=== PATIENT | female | born 1980 | race American Indian/Alaskan Native ===

== ENCOUNTER 2017-11-20 06:09 | Emergency (ER) | payer OTHER ==
[2017-11-20] MEDS ORDERED: ATIVAN IV ONE ×2 (06:50→07:14)
[2017-11-20] MEDS ORDERED: NACL 0.9% 1000 ML 1,000 ML IV ONE (06:54)
[2017-11-20 07:28] LABS: Basophils % (Auto) 0.2 % (0.0-1.8); Eosinophils % (Auto) 0.1 % (0.0-4.3); Hematocrit 31.5 % (30.3-42.9); Hemoglobin 10.2 gm/dl (10.1-14.3); Lymphocytes # (Auto) 0.9 K/mm3 (1.2-5.4); Mean Corpuscular HGB Conc 33 % (30-34); Mean Corpuscular Hemoglobin 28 pg (28-32); Mean Corpuscular Volume 85 fl (79-97); Monocytes # (Auto) 0.3 K/mm3 (0.0-0.8); Monocytes % (Auto) 2.7 % (0.0-7.3); Platelet Count 347 K/mm3 (140-440); Red Cell Distribution Width 16.4 % (13.2-15.2)
--- NOTE | 2017-11-20 09:53 | Ultrasound Report ---
ULTRASOUND OB LESS THAN 14 WEEKS FETUS ULTRASOUND OB TRANSVAGINAL HISTORY: Vaginal bleeding, positive urine test. COMPARISON: None. TECHNIQUE: Transabdominal and transvaginal ultrasound with color doppler interrogation. FINDINGS: Many of the images are limited secondary to poor patient cooperation. Uterus: The uterus is anteverted. The uterus measures 15 x 5 x 6 cm. No intrauterine gestational sac is identified. No heart tones are detected. The endometrial stripe measures 8 mm. A few of the transabdominal images suggest soft tissue within the cervical canal. This is not clearly demonstrated on the limited transvaginal images. Incomplete could be considered. Please correlate with the patient's clinical presentation. Right ovary: Not visualized. Left ovary: Not visualized. No pelvic fluid or mass is identified. Normal color doppler interrogation. IMPRESSION: Limited exam. No viable intrauterine is identified.
[2017-11-20 10:08] LABS: INR 1.06 (0.87-1.13)
[2017-11-20 10:11] LABS: Alanine Aminotransferase 8 units/L (7-56); Albumin 3.5 g/dL (3.9-5); BUN/Creatinine Ratio 7; Blood Urea Nitrogen 4 mg/dL (7-17); Calcium 8.6 mg/dL (8.4-10.2); Hemolysis Index 5
[2017-11-20 10:18] LABS: Bilirubin,Direct < 0.2 mg/dL (0-0.2)
[2017-11-20 11:37] VITALS: BP 121/53
[2017-11-20 12:10] LABS: Bilirubin,Urine NEG (Negative); Blood,Urine LG (Negative); Color,Urine Red (Yellow); Nitrite,Urine NEG (Negative); Protein,Urine <15 mg/dL mg/dL (Negative); Urobilinogen,Urine < 2.0 mg/dL (<2.0)
[2017-11-20 12:11] LABS: RBC,Urine > 182.0 /HPF (0.0-6.0)
--- NOTE | 2017-11-20 12:19 | Emergency Department Report ---
ED General Adult HPI - General Chief complaint: Vaginal Bleeding Stated complaint: POSS MISCARRIAGE Time Seen by Provider: 11/20/17 06:52 Source: EMS Mode of arrival: Stretcher Limitations: No Limitations - History of Present Illness Initial comments: Patient is a very poor historian. Apparently she's had multiple prior abortions. She is poorly cooperative with nursing and this examiner. Apparently she experienced vaginal bleeding prior to arrival. She is not complaining of abdominal pain at the time of my encounter. -: unknown Consistency: intermittent Improves with: none Worsens with: none Associated Symptoms: denies other symptoms Treatments Prior to Arrival: none - Related Data Previous Rx's Medication Instructions Recorded Last Taken Type Sulfamethoxazole/Trimethoprim 1 each PO BID #20 tablet 10/15/13 Unknown Rx [Bactrim DS] traMADol [Ultram] 50 mg PO Q4HR PRN #14 tablet 10/15/13 Unknown Rx Nitrofurantoin Monohyd/M-Cryst 100 mg PO BID #10 capsule 11/20/17 Unknown Rx [Macrobid 100 mg Capsule] traMADol [Ultram] 50 mg PO Q6HR PRN #10 tablet 11/20/17 Unknown Rx Allergies Allergy/AdvReac Type Severity Reaction Status Date / Time No Known Allergies Allergy Unverified 10/15/13 14:29 ED Review of Systems ROS: Stated complaint: POSS MISCARRIAGE Other details as noted in HPI Comment: Unobtainable due to pts medical conditions ED Past Medical Hx - Past Medical History Previous Medical History?: Yes Hx GERD: Yes - Surgical History Hx Breast Surgery: Yes (breast reduction) Additional Surgical History: six miscarriages - Social History Smoking Status: Unknown if ever smoked Substance Use Type: None - Medications Home Medications: Home Medications Medication Instructions Recorded Confirmed Last Taken Type Sulfamethoxazole/Trimethoprim 1 each PO BID #20 tablet 10/15/13 Unknown Rx [Bactrim DS] traMADol [Ultram] 50 mg PO Q4HR PRN #14 tablet 10/15/13 Unknown Rx Nitrofurantoin Monohyd/M-Cryst 100 mg PO BID #10 capsule 11/20/17 Unknown Rx [Macrobid 100 mg Capsule] traMADol [Ultram] 50 mg PO Q6HR PRN #10 tablet 11/20/17 Unknown Rx ED Physical Exam - General Limitations: Other (anxiety, poorly cooperative) General appearance: alert, in no apparent distress - Head Head exam: Present: atraumatic, normocephalic - Eye Eye exam: Present: normal appearance. Absent: scleral icterus - ENT ENT exam: Present: mucous membranes moist - Neck Neck exam: Present: normal inspection - Respiratory Respiratory exam: Present: normal lung sounds bilaterally. Absent: respiratory distress - Cardiovascular Cardiovascular Exam: Present: regular rate, normal rhythm. Absent: systolic murmur, diastolic murmur, rubs, gallop - GI/Abdominal GI/Abdominal exam: Present: soft, normal bowel sounds. Absent: distended, tenderness, guarding, rebound, rigid - Extremities Exam Extremities exam: Present: normal inspection - Back Exam Back exam: Present: normal inspection - Neurological Exam Neurological exam: Present: alert, oriented X3, CN II-XII intact. Absent: motor sensory deficit - Psychiatric Psychiatric exam: Present: agitated, anxious - Skin Skin exam: Present: warm, dry, intact, normal color. Absent: rash ED Course Vital Signs 11/20/17 11/20/17 11/20/17 06:22 06:35 07:00 Temperature 97 F L Pulse Rate 84 97 H Respiratory 14 18 Rate Blood Pressure 139/93 134/72 O2 Sat by Pulse 100 98 Oximetry 11/20/17 11/20/17 11/20/17 08:00 09:41 10:00 Temperature Pulse Rate 73 85 86 Respiratory 24 20 24 Rate Blood Pressure 132/77 117/58 114/61 O2 Sat by Pulse 99 98 97 Oximetry 11/20/17 11:00 Temperature Pulse Rate 98 H Respiratory 24 Rate Blood Pressure 121/53 O2 Sat by Pulse 97 Oximetry - Reevaluation(s) Reevaluation #1: Patient required Ativan to facilitate medical testing. Her ultrasound was negative. He is appropriate for outpatient follow-up. On reexamination she is calm and resting. She will be given appropriate return criteria and follow-up instructions. 11/20/17 12:29 Reevaluation #2: Most likely diagnosis is spontaneous . 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 11/20/17 12:31 Reevaluation #3: 11/20/17 12:31 Discussed with lab quantitative hCG will be performed. ED Medical Decision Making - Lab Data Result diagrams: 11/20/17 06:56 11/20/17 09:34 Laboratory Results - last 24 hr 11/20/17 11/20/1718 06:56 06:56 09:34 WBC 12.3 H RBC 3.70 Hgb 10.2 Hct 31.5 MCV 85 MCH 28 MCHC 33 RDW 16.4 H Plt Count 347 Lymph % (Auto) 7.0 L [place] % (Auto) 2.7 Eos % (Auto) 0.1 Baso % (Auto) 0.2 Lymph # 0.9 L [place] # 0.3 Eos # 0.0 Baso # 0.0 Seg Neutrophils % 90.0 H Seg Neutrophils # 11.1 H PT 14.3 INR 1.06 APTT 26.0 Sodium Potassium Chloride Carbon Dioxide Anion Gap BUN Creatinine Estimated GFR BUN/Creatinine Ratio Glucose Calcium Total Bilirubin Direct Bilirubin AST ALT Alkaline Phosphatase Total Protein Albumin Albumin/Globulin Ratio HCG, Qual Positive Urine Color Urine Turbidity Urine pH Ur Specific [place] Urine Protein Urine Glucose (UA) Urine Ketones Urine Blood Urine Nitrite Urine Bilirubin Urine Urobilinogen Ur Leukocyte Esterase Urine WBC (Auto) Urine RBC (Auto) U Epithel Cells (Auto) Blood Type Antibody Screen 11/20/17 11/20/17 11/20/17 09:34 09:34 11:33 WBC RBC Hgb Hct MCV MCH MCHC RDW Plt Count Lymph % (Auto) [place] % (Auto) Eos % (Auto) Baso % (Auto) Lymph # [place] # Eos # Baso # Seg Neutrophils % Seg Neutrophils # PT INR APTT Sodium 138 Potassium 3.6 Chloride 102.8 Carbon Dioxide 21 L Anion Gap 18 BUN 4 L Creatinine 0.6 L Estimated GFR > 60 BUN/Creatinine Ratio 7 Glucose 105 H Calcium 8.6 Total Bilirubin 0.30 Direct Bilirubin < 0.2 AST 11 ALT 8 Alkaline Phosphatase 71 Total Protein 7.1 Albumin 3.5 L Albumin/Globulin Ratio 1.0 HCG, Qual Urine Color Red Urine Turbidity Clear Urine pH 8.0 H Ur Specific [place] 1.009 Urine Protein <15 mg/dl Urine Glucose (UA) Neg Urine Ketones 20 Urine Blood Lg Urine Nitrite Neg Urine Bilirubin Neg Urine Urobilinogen < 2.0 Ur Leukocyte Esterase Mod Urine WBC (Auto) 31.0 H Urine RBC (Auto) > 182.0 U Epithel Cells (Auto) 1.0 Blood Type O POSITIVE Antibody Screen Negative - Radiology Data Radiology results: report reviewed interpreted by me: Empty uterus no acute pelvic process Critical care attestation.: If time is entered above; I have spent that time in minutes in the direct care of this critically ill patient, excluding procedure time. ED Disposition Clinical Impression: Spontaneous UTI (urinary tract infection) Qualifiers: Urinary tract infection type: site unspecified Hematuria presence: with hematuria Qualified Code(s): N39.0 - Urinary tract infection, site not specified ; R31.9 - Hematuria, unspecified; R31.9 - Hematuria, unspecified Disposition: TO HOME OR SELFCARE Is pt being admited?: No Does the pt Need Aspirin: No Condition: Stable Instructions: Spontaneous Miscarriage (ED), Urinary Tract Infection in Women ( ED) Additional Instructions: We would recommend that you have a repeat blood test and visit with a psychology teacher. See referral. Return any significant pain or bleeding. It is possible that you have a bladder infection. He has been given an antibiotic. A urine culture will be ready by the time you see the psychology teacher for final determination. Prescriptions: Nitrofurantoin Monohyd/M-Cryst [Macrobid 100 mg Capsule] 100 mg PO BID #10 capsule traMADol [Ultram] 50 mg PO Q6HR PRN #10 tablet PRN Reason: Pain Referrals: PRIMARY CARE [Primary Care Provider] - 3-5 Days [facility] [Provider Group] - 2-3 Days Time of Disposition: 12:36
[2017-11-20 13:09] LABS: Amphetamine Screen,Urine PRESUMPTIVE NEGATIVE; Benzodiazepines Screen,Urine PRESUMPTIVE NEGATIVE; Cannabinoid Screen,Urine PRESUMPTIVE NEGATIVE; Cocaine Screen,Urine PRESUMPTIVE NEGATIVE; Methadone Screen,Urine PRESUMPTIVE NEGATIVE; Opiate Screen,Urine PRESUMPTIVE NEGATIVE
== END 2017-11-20 12:47 | disposition home or self-care (01) ==
LOC: ED 06:09
DX: N93.9 Abnormal uterine and vaginal bleeding, unspecified (principal); O03.9 Complete or unspecified spontaneous abortion without complication; N39.0 Urinary tract infection, site not specified; N31.9 Neuromuscular dysfunction of bladder, unspecified
CPT/HCPCS: 36415; 76801; 76817; 80048; 80074; 80307; 81001; 84702; 84703; 85025; 85610; 85730; 86850; 86900; 86901; 87086; 96361; 96374; 96376; 99284; J2060; J7030